=== PATIENT | female | born 1935 | race Caucasian/White ===

== ENCOUNTER 2016-06-04 11:15 | Emergency (ER) | payer MEDICARE, BC ==
[2016-06-04 11:33] VITALS: BP 168/80; PULSE 76; TEMP 99.1; BMI 32.0
[2016-06-04] MEDS ORDERED: SILVER NITRATE APPLICATOR TOP ONE (11:37)
--- NOTE | 2016-06-04 11:37 | EDPRACDOC ---
- General Information Chief Complaint: Nosebleed Stated Complaint: NOSE BLEED LAST NIGHT - SENT BY PCP FOR EVAL Time Seen by Provider: 06/04/16 11:29 Information Source: Patient Mode Of Arrival: Car Home Medications: Home Medications Albuterol Sulfate [Albuterol Sulfate Hfa] 90 mcg IH QID PRN 05/26/12 Ezetimibe [Zetia] 10 mg PO QHS 05/26/12 Fluticasone/Salmeterol [Advair 100-50] 1 puff INH BID 05/26/12 Furosemide [Lasix] 20 mg PO DAILY 05/26/12 Nitroglycerin 0.4 mg SL [id number] PRN 05/26/12 Omeprazole [Prilosec] 20 mg PO DAILY 05/26/12 Potassium Chloride 10 meq PO DAILY 05/26/12 Adalimumab [Humira] 40 mg [id number] 09/04/13 Diltiazem HCl [Cardizem] 30 mg PO .PRN PRN 09/04/13 HydrALAZINE (Cardiovascular) [Apresoline] 25 mg PO BID 09/04/13 Rivaroxaban [Xarelto] 10 mg PO DAILY 09/04/13 Cetirizine HCl [Zyrtec] 10 mg PO DAILY 12/23/15 Diltiazem HCl [Diltiazem 24Hr ER] 120 mg PO DAILY 12/23/15 Albuterol Sulfate [Ventolin Hfa] 1 - 2 puff INH Q4H PRN 02/01/16 Linaclotide [Linzess] 145 mcg PO 02/01/16 Metoprolol Tartrate 25 mg PO DAILY 02/01/16 [place]-3 Fatty Acids/Fish Oil [Fish Oil 1,000 mg Softgel] 1 cap PO DAILY Allergies/Adverse Reactions: Allergies Allergy/AdvReac Type Severity Reaction Status Date / Time alprazolam [From Xanax] Allergy Unknown Unknown/See Verified 06/04/16 11:25 Comments MATEO Inhibitors Allergy Unknown Verified 06/04/16 11:25 balsam suzie Allergy See Verified 06/04/16 11:27 Comments codeine Allergy Nausea/Vomi Verified 06/04/16 11:25 ting lisinopril Allergy Edema-Local Verified 06/04/16 11:25 ized moxifloxacin [From Avelox] Allergy Unknown Verified 06/04/16 11:25 Penicillins Allergy Nausea/Vomi Verified 06/04/16 11:25 ting red dye Allergy Unknown Verified 06/04/16 11:25 Sulfa (Sulfonamide Allergy Rash-Genera Verified 06/04/16 11:25 Antibiotics) lized - History of Present Illness Onset: LAST NIGHT HPI: PT STATES HAD NOSE BLEED DURING THE NIGHT, NOT CURRENTLY BLEEDING, CALLED PMD OFFICE AND WAS TOLD TO COME TO ED B/C THEY COULDNT FIT HER IN. PT STATES SHE HAD A PROBLEM LIKE THIS IN THE PAST AFTER SHE HAD CARDIAC ABLATION AND WAS STARTED ON XARELTO, SHE STATES THEY SEEM TO BE STARTING UP AGAIN. PT STATES HER NOSE ALWAYS BLEEDS FROM THE LEFT NARIS AND ONLY BLEED FOR ABOUT 10 MINUTES. PT STATES SHE FEELS FINE AT THIS TIME HAS NO OTHER C/O. Blood Location: Left Naris (NOT CURRENTLY BLEEDING) Context Mechanism: Reports: Other (ANTICOAGULATION) Circumstances: Reports: Other (SPONTANEOUS) Amount: Small Use of: Reports: Other (XARELTO) Relevent History of: Reports: Nasal bleeding Severity: Reports: Tsp. Bleeding: Reports: Controlled Associated Signs & Symptoms: Reports: None ED Past Medical History - History Reviewed Yes Nurses notes reviewed and agree except as marked Travel Outside of [place] in the Last 3 Months?: No - Patient Medical History Neurological History: Reports: Cerebrovascular Accident (TIA) Cardiac History: Reports: Atrial Fibrillation (WITH ABLATION - ON XARELTO), Hypertension, Congestive Heart Failure, Hypercholesterolemia Respiratory History: Reports: Asthma GI/ History: Reports: Gastroesophageal Reflux, Ulcer Musculoskeletal History: Reports: Arthritis Psychological History: Reports: Depression, Anxiety Surgical History: Reports: Appendectomy, Cholecystectomy, Hysterectomy, Hernia Surgery, Other (KNEE REPLACEMENT) - Family Medical History Reports: Hypertension (PARENTS, BROTHER), Diabetes (DAD), Stroke (DAD), Cardiac Disorders (PARENTS, BROTHER). Denies: Cancer - Social Medical History Smoking Status: Never smoker ETOH: None Substance Abuse: None Lives With: Spouse Lives In: Home EDM Review of Systems - Review of Systems ROS Negative Except as Marked: Yes All systems reviewed and were negative except as marked Constitutional: No Symptoms Reported. negative: Fever, Chills, Weakness, Fatigue, Loss of Appetite Eyes: No Symptoms Reported. negative: Redness, Blurred Vision, Double Vision, Discharge, Pain, Light Sensitive, Photophobia Ears: No Symptoms Reported. negative: Pain, Hearing Loss, Drainage, Ear Pulling Throat: No Symptoms Reported. negative: Pain, Swelling Nose: Bleeding (LEFT). negative: Abrasion, Congestion, Discharge, Deformity, Ecchymosis, Injection, Laceration, Swelling, Tender Mouth: No Symptoms Reported. negative: Pain, Drooling Respiratory: No Symptoms Reported. negative: Cough, Brassy Cough, Barky Cough, Shortness of Breath, Wheezing, Hemoptysis Cardiovascular: No Symptoms Reported. negative: Chest Pain, Palpitations, Syncope, Edema, Orthopnea, PND, Skin Mottling, Cyanosis Gastrointestinal: No Symptoms Reported. negative: Pain, Constipation, Nausea, Vomiting, Diarrhea, Melena, Formula Intolerance Genitourinary: No Symptoms Reported. negative: Dysuria, Hematuria, Frequency, Discharge, Bleeding, Testicular Pain, Neurological: No Symptoms Reported. negative: Headache, Dizziness, Seizure, Numbness, Weakness, Speech Difficulty, Gait Difficulty Musculoskeletal: No Symptoms Reported. negative: Neck, Chestwall, Ribs, Back, Shoulder, Arm, Elbow, Forearm, Wrist, Hand, Pelvis, Hip, Femur, Knee, Leg, Ankle , Foot Integumentary: No Symptoms Reported. negative: Itching, Rash, Bruising, Wound Allergic/Immunologic: No Symptoms Reported. negative: Hives, Itching Hematologic: No Symptoms Reported. negative: Lymphadenopathy, Easy Bruising, Easy Bleeding Endocrine: No Symptoms Reported. negative: Weight Gain, Weight Loss Psychiatric: No Symptoms Reported. negative: Anxiety, Depression, Hallucinations, Insomnia, Suicidal - Physical Exam Constitutional: No apparent distress, Alert (Awake) Oriented to: Time, Person, Place Last recorded Vital Signs: Last Vital Signs Temp 99.1 F 06/04/16 11:27 Pulse 76 06/04/16 11:27 Resp 18 06/04/16 11:27 BP 168/80 06/04/16 11:27 Pulse Ox 92 06/04/16 11:27 Oxygen Pulse Oxygen Saturation 92 O2 Device Room Air Oxygen Flow Rate Fraction of Inspired Oxygen ( FIO2) - HEENT Head: Normal ( normocephalic) Eye Exam: Normal (PERRL, EOMI, Sclera white) Oropharynx: Normal (Pharynx:Moist without exudate,Gums-no swelling) Tympanic Membrane: Normal ENT EAC: Normal TMJ: Normal Nose: Other (NO OBVIOUS BLEEDING AT THIS TIME. THERE IS AREA OF CONCERN TO LEFT ANTERIOR MEDIAL SEPTUM FOR BLEEDING.) Neck: Normal (FROM, trachea at midline) - Respiratory/Cardiovascular Respiratory: Normal - CTA (BBS clear to auscultation without adventitious sounds ) Cardiovascular: Normal (RRR without murmur, gallop or rub) - GI Auscultation: Normal (NABS) Palpation: Normal (Soft,No rebound or guarding, non distended) Tenderness: Non tender Whiting's Sign: Negative - Musculoskeletal Back: Normal (Non-Tender) Extremities: Normal (Normal tone, Pulses 2+ No cyanosis or edema, FROM) - Integumentary Skin: Normal, Warm, Dry Lymphatics: Normal (no adenopathy) - Neurologic Memory Impaired: Normal Motor Function: Normal (Normal tone, Pulses 2+ No cyanosis or edema, FROM) Cranial Nerve: Normal (CN II-X11 intact sensation, strength 5/5) Cerebellar: Normal Mood Description: Normal Perception: Normal ED Procedures - Nasal Cautery and Pack Nasal Cautery and Pack Notes:: NEOSYNEPHRINE APPLIED TO LEFT NARIS AND ANTIBIOTIC OINTMENT APPLIED WITH QTIP. - Differential Diagnosis Anterior nasal bleed, Coagulopathy, Hypertension Decision Time to Discharge: 12:09 - Departure Disposition: Home Condition: Stable Final Diagnosis: LEFT ANTERIOR EPISTAXIS Instructions: Nosebleed (ED) Education/Counseling Given To: Patient Education/Counseling Given Regarding: Diagnosis, Treatment, Prognosis, Follow Up Referrals: Nakul Griffith MD [Primary Care Provider] - One Week Hugo Ram MD [Staff Physician] - One Week Additional Instructions: USE AFRIN EVERY 4HRS UNTIL FOLLOW UP WITH ENT DOCTOR, APPLY ANTIBIOTIC OINTMENT TO INSIDE OF NOSE 4-5 TIMES PER DAY. RETURN FOR WORSE OR DIFFERENT SYMPTOMS.
[2016-06-04] MEDS ORDERED: PHENYLEPHRINE 0.5% NAS ONE (11:48)
== END 2016-06-04 12:25 | disposition home or self-care (01) ==
LOC: EDMC 11:15
DX: R04.0 Epistaxis (principal)
CPT/HCPCS: 30901; 99282; A9270; J3490